=== PATIENT | female | born 1990 | race Caucasian/White ===

== ENCOUNTER 2017-02-25 16:05 | Emergency (ER) | payer MEDICAID, MEDICARE ==
[~2017-02-25] VITALS: Ht 172.7 cm; Wt 113.6 kg
[2017-02-25 16:06] VITALS: BP 149/87
[2017-02-25] MEDS ORDERED: OXYcodone/APAP 5/325MG TABLET ONE (16:47)
[2017-02-25] MEDS ORDERED: OXYcodone/APAP 5/325MG TABLET PO ONE (17:00)
== END 2017-02-25 17:51 | disposition home or self-care (01) ==
LOC: ED 17:16
DX: S39.012A Strain of muscle, fascia and tendon of lower back, initial encounter (principal); W10.9XXA Fall (on) (from) unspecified stairs and steps, initial encounter; Y99.8 Other external cause status; Y93.9 Activity, unspecified; Y92.009 Unspecified place in unspecified non-institutional (private) residence as the place of occurrence of the external cause
CPT/HCPCS: 72110